=== PATIENT | female | born 1990 | race Caucasian/White ===

== ENCOUNTER 2020-11-06 20:28 | Emergency (ER) | payer BC ==
[2020-11-06 22:02] LABS: APPEARANCE,URINE CLEAR; BILIRUBIN,URINE NEGATIVE (NEGATIVE); COLOR,URINE YELLOW; GLUCOSE, URINE NEGATIVE (NEGATIVE); KETONES,URINE NEGATIVE (NEGATIVE); LEUKOCYTE ESTERASE,URINE NEGATIVE (NEGATIVE); NITRITE,URINE NEGATIVE (NEGATIVE); PROTEIN,URINE NEGATIVE (NEGATIVE); URINE SPECIFIC GRAVITY 1.012; UROBILINOGEN,URINE NEGATIVE mg/dL (<2.0)
--- NOTE | 2020-11-06 22:21 | ER Document Report ---
ED Medical Screen (RME) - General Chief Complaint: Abdominal Pain Stated Complaint: HIGH WHITE BLOOD CELL COUNT Time Seen by Provider: 11/06/20 21:45 Primary Care Provider: JOHNEMPLOYEE [Primary Care Provider] - Follow up as needed Mode of Arrival: Ambulatory Information source: Patient - HPI Patient complains to provider of: Right lower quadrant abdominal pain Notes: 11/06/20 22:20 Patient with complaints of right lower quadrant abdominal pain. The patient states that she was at home when she had a sudden onset of right lower quadrant pain. So bad that she had to stop shopping and sit on the floor. She went to urgent care where she had labs drawn. She was sent home with a prescription for antibiotics. They oni blood at urgent care and called her and told her that her white blood cell count was 14 and that she needed to come to the emergency department. Her pain has improved but is still there. She had nausea during the pain, denies any nausea or vomiting now. No fever. She does complain of some urinary frequency and urgency. Exam: Nontoxic, no distress. Lungs clear throughout. Heart sounds normal. Right lower quadrant tenderness on limited triage abdominal exam. An initial examination was made on the patient as part of the triage process, and it was determined a more comprehensive evaluation was necessary. Initial orders were placed and patient was transferred to another provider in the ED who assumed care and finished evaluation and plan. - Related Data Allergies/Adverse Reactions: No Known Allergies Allergy (Unverified 11/06/20 22:19) Past Medical History - Social History Chew tobacco use (# tins/day): No Frequency of alcohol use: None Drug Abuse: None Physical Exam - Vital signs Vitals: Temp Pulse Resp BP Pulse Ox 98.8 F 90 16 146/83 H 99 11/06/20 20:39 11/06/20 20:39 11/06/20 20:39 11/06/20 20:39 11/06/20 20:39 Course - Vital Signs Vital signs: Temp Pulse Resp BP Pulse Ox 98.8 F 90 16 146/83 H 99 11/06/20 20:39 11/06/20 20:39 11/06/20 20:39 11/06/20 20:39 11/06/20 20:39 Doctor's Discharge - Discharge Referrals: HEALTH,EMPLOYEE [Primary Care Provider] - Follow up as needed
[2020-11-06] MEDS ORDERED: ONDANSETRON HCL INJ/PF 4 MG/2 ML SDV IV ONE (23:17)
[2020-11-06] MEDS ORDERED: MORPHINE SULFATE 10 MG/ML INJ IV ONE (23:17)
--- NOTE | 2020-11-06 23:19 | ER Document Report ---
ED GI/ - General Chief Complaint: Abdominal Pain Stated Complaint: HIGH WHITE BLOOD CELL COUNT Time Seen by Provider: 11/06/20 21:45 Primary Care Provider: HEALTH,EMPLOYEE [ACTIVE STAFF] - Follow up as needed Mode of Arrival: Ambulatory Notes: Patient is a 30-year-old female who comes emergency department for chief complaint of right sided abdominal/pelvic pain. She states that she was feeling fine today, got off work, and then suddenly had severe pain that made her vaguely nauseated and she felt lightheaded. She states the pain was extremely bad at onset and now has improved but is still present to some degree over the area. She states she has had this several times, she states usually she just goes home and sleeps it off and on the next day wakes up essentially pain-free. However she states that she went to urgent care, they oni blood, they called her later and told her that her white blood cell count was 14 and she needed to come to the emergency department. She states that she has had some urinary frequency but denies dysuria, flank pain, vaginal bleeding or discharge. She denies any surgeries. Past medical history of anxiety/depression, denies medical history otherwise. - Related Data Allergies/Adverse Reactions: No Known Allergies Allergy (Unverified 11/06/20 22:19) Past Medical History - General Information source: Patient - Social History Smoking Status: Never Smoker Chew tobacco use (# tins/day): No Frequency of alcohol use: None Drug Abuse: None Lives with: Family Family History: Reviewed & Not Pertinent - Medical History Medical History: Negative Surgical Hx: Negative - Immunizations Immunizations up to date: Yes Hx Diphtheria, Pertussis, Tetanus Vaccination: Yes Review of Systems - Review of Systems Constitutional: No symptoms reported EENT: No symptoms reported Cardiovascular: No symptoms reported Respiratory: No symptoms reported Gastrointestinal: See HPI Genitourinary: See HPI Female Genitourinary: See HPI Musculoskeletal: No symptoms reported Skin: No symptoms reported Hematologic/Lymphatic: No symptoms reported Neurological/Psychological: No symptoms reported Physical Exam - Vital signs Vitals: Temp Pulse Resp BP Pulse Ox 98.8 F 90 16 146/83 H 99 11/06/20 20:39 11/06/20 20:39 11/06/20 20:39 11/06/20 20:39 11/06/20 20:39 - Notes Notes: GENERAL: Alert, interacts well. No acute distress. No signs of distress HEAD: Normocephalic, atraumatic. EYES: Pupils equal, round, and reactive to light. Extraocular movements intact. ENT: Oral mucosa moist, tongue midline. Oropharynx unremarkable. Airway patent. NECK: Full range of motion. Supple. Trachea midline. No lymphadenopathy. LUNGS: Clear to auscultation bilaterally, no wheezes, rales, or rhonchi. No respiratory distress. Non-tender chest wall. HEART: Regular rate and rhythm. No murmur ABDOMEN: Patient is tender in the right inguinal area but she does not have specific McBurney's point tenderness. Remaining abdomen is completely benign. No rigidity, distention, or signs of trauma. Bowel sounds present throughout. EXTREMITIES: Moves all 4 extremities spontaneously. No edema, normal radial and dorsalis pedis pulses bilaterally. No cyanosis. BACK: no cervical, thoracic, lumbar midline tenderness. No saddle anesthesia, normal distal neurovascular exam. Moves all extremities in full range of motion. NEUROLOGICAL: Alert and oriented x3. Normal speech. Cranial nerves II through XII grossly intact. Strength 5/5 in all extremities. PSYCH: Normal affect, normal mood. SKIN: Warm, dry, normal turgor. No rashes or lesions noted. Course - Re-evaluation Re-evalutation: CBC shows mild leukocytosis at 13,000 which is decreased from previous level reported from patient. Urinalysis unremarkable, chemistry unremarkable, negative. Based on her physical exam and reported history I have a higher suspicion that her pain source is ovarian. Ultrasound showing complex possibly hemorrhagic cyst on the right ovary without signs of torsion or concerning findings otherwise. I do suspect this is the cause of her symptoms. Based on her exam and history I have a low suspicion of appendicitis at this time. I discussed details with patient. I discussed follow-up with W[employer] PROCESSING SUPERVISOR, discussed return precautions, patient states appreciation and agreement. Stable and well-appearing at time of discharge. - Vital Signs Vital signs: Temp Pulse Resp BP Pulse Ox 98.8 F 90 16 122/81 99 11/06/20 20:39 11/06/20 20:39 11/06/20 20:39 11/07/20 00:57 11/06/20 20:39 - Laboratory Results Result Diagrams: 11/06/20 23:20 11/06/20 23:20 Laboratory Results Interpreted: 11/06/20 11/06/20 23:20 23:20 WBC 13.0 H Absolute Neuts (auto) 8.7 H Sodium 136.2 L Anion Gap 4 L Critical Laboratory Results Reviewed: No Critical Results - Radiology Results Critical Radiology Results Reviewed: No Critical Results Discharge - Discharge Clinical Impression: Lower abdominal pain, Hemorrhagic cyst of ovary Condition: Stable Disposition: HOME, SELF-CARE Instructions: Oral Narcotic Medication ([facility]) Additional Instructions: Your work-up shows a complex cyst on your right ovary, this appears to be hemorrhagic, the bleeding from the cyst is most likely the cause of your pain. This should simply complete then absorb and resolve. If needed take the stronger pain medication using the precautions, otherwise you can combine Tylenol and ibuprofen for pain. It is important that you have a follow-up appointment with W[employer] PROCESSING SUPERVISOR for a recheck to make sure this complex cyst resolved as we discussed. Return if you worsen including severe worsening pain, vomiting, fever, or any other concerning or worsening symptoms. Prescriptions: Oxycodone HCl/Acetaminophen [Percocet 5-325 mg Tablet] 1 - 2 tab PO TID PRN #8 tab PRN Reason: Forms: Return to Work Referrals: HEALTH,EMPLOYEE [ACTIVE STAFF] - Follow up as needed
[2020-11-06 23:34] LABS: ABSOLUTE BASOPHILS # (AUTO) 0.1 10^3/uL (0.0-0.2); ABSOLUTE EOSINOPHILS # (AUTO) 0.1 10^3/uL (0.0-0.6); ABSOLUTE LYMPHOCYTES (AUTO) 3.3 10^3/uL (0.5-4.7); ABSOLUTE MONOCYTES (AUTO) 0.8 10^3/uL (0.1-1.4); ABSOLUTE NEUT (AUTO) 8.7 10^3/uL (1.7-8.2); BASOPHILS % (AUTO) 0.7 % (0-2); EOSINOPHILS % (AUTO) 0.6 % (0-6); HEMATOCRIT 37.5 % (36.0-47.0); HEMOGLOBIN 12.6 g/dL (12.0-15.5); LYMPHOCYTES % (AUTO) 25.3 % (13-45); MEAN CORPUSCULAR HEMOGLOBIN 27.1 pg (27.0-33.4); MEAN CORPUSCULAR HGB CONC 33.5 g/dL (32.0-36.0); MEAN CORPUSCULAR VOLUME 81 fl (80-97); MONOCYTES % (AUTO) 6.5 % (3-13); PLATELET COUNT 234 10^3/uL (150-450); RED BLOOD COUNT 4.63 10^6/uL (3.72-5.28); RED CELL DISTRIBUTION WIDTH 13.8 % (11.5-14.0); SEGMENTED NEUTROPHILS % (AUTO) 66.9 % (42-78); TOTAL CELLS COUNTED % (AUTO) 100 %
[2020-11-06 23:46] LABS: ALBUMIN 4.3 g/dL (3.5-5.0); ALKALINE PHOSPHATASE 55 U/L (38-126); ASPARTATE AMINO TRANSFERASE 22 U/L (14-36); BILIRUBIN,DIRECT 0.1 mg/dL (0.0-0.4); BILIRUBIN,TOTAL 0.3 mg/dL (0.2-1.3); BLOOD UREA NITROGEN 11 mg/dL (7-20); CALCIUM 9.4 mg/dL (8.4-10.2); CHLORIDE 103 mmol/L (98-107); GLUCOSE 101 mg/dL (75-110); TOTAL PROTEIN 6.9 g/dL (6.3-8.2)
[2020-11-06 23:52] LABS: CARBON DIOXIDE 29 mmol/L (22-30)
[2020-11-06 23:54] LABS: ANION GAP 4 (5-19)
--- OUTSIDE RECORDS SUMMARY | 2020-11-07 00:27 | XMS REPORT ---
:1990 Author Organization [facility] [place] [facility] [place] [address] [place] [id number] Care Team Providers Name Role Phone Unavailable Unavailable Unavailable Allergies, Adverse Reactions, Alerts This patient has no known allergies or adverse reactions. Medications This patient has no known medications. Problems This patient has no known problems. Procedures This patient has no known procedures. Results This patient has no known results. Social History This patient has no known social history. Vital Signs This patient has no known vital signs.
--- NOTE | 2020-11-07 00:42 | RADIOLOGY REPORT (SQ) ---
EXAM DESCRIPTION: US PELVIS TRANSVAGINAL COMPLETED DATE/TME: 11/07/2020 00:20 CLINICAL HISTORY: 30 years, Female, pelvic pain, nausea COMPARISON: None. TECHNIQUE: Emergent pelvic ultrasound LIMITATIONS: None. FINDINGS: The uterus measures 10.0 x 4.2 x 5.7 cm. The myometrium is homogenous. Endometrium measures 9 mm in thickness. IUD within the endometrial canal. The right ovary measures 4.5 x 2.4 x 3.9 cm, the left 3.4 x 1.8 x 1.8 cm. Arterial and venous flow to each ovary. No solid adnexal mass. No free fluid. There is a 1.9 x 1.8 cm mixed echogenicity focus of the right ovary likely reflecting complex cyst. IMPRESSION: Complex 1.9 cm right ovarian cyst. This likely reflects a complex/hemorrhagic dominant follicle Recommend follow-up as per below. IUD in place. Recommendations for f/u of ovarian complex cysts (1): Endometrioma: <= 7 cm: US f/u 6-12 wks. If not surgically resected, US f/u annually. >7 cm: Consider MR w/IVC or surgical evaluation. If not surgically resected, US f/u annually. Dermoid: <= 5 cm: MR w/IV contrast. If not surgically resected, US f/u annually. >5 cm: Surgical evaluation. If not surgically resected, MR w/IVC; then US f/u annually Indeterminate cyst - multiple thin <=3 mm septations: Any size in any age: Consider surgical evaluation. Indeterminate cyst - non-hyperechoic nodule w/o blood flow: Any size in any age: Consider MR w/IVC or surgical evaluation. Indeterminate cyst - other, not classic for but suggestive of hemorrhagic cyst, endometrioma or dermoid: Pre-menopause: <= 7 cm: US f/u 6-12 weeks. If unchanged, continue f/u with US or consider MR w/IVC. If these do not confirm endometrioma or dermoid, consider surgical evaluation. >7 cm: Consider MR w/IVC or surgical evaluation. Post-menopause (>=1 year from last menstrual period): Any size: Consider surgical evaluation. Cyst worrisome for malignancy (thick, irregular >=3 mm septations or nodule with blood flow): Any size in any age: Consider surgical evaluation. (1) Recommendations based upon the 2010 SRU Consensus Conference Statement on the Management of Asymptomatic Ovarian and Other Adnexal Cysts Imaged at US: Radiology. 2009;256(3):941-08 copyright 2011 [employer]- All Rights Reserved
[2020-11-07] MEDS ORDERED: HYDROCODONE/ACETAMINOPHEN 5-325 MG (6 TAB/ER DISP) PO PRN (00:55)
[2020-11-07 01:04] VITALS: BP 122/81
== END 2020-11-07 01:08 | disposition home or self-care (01) ==
LOC: ER 20:28
DX: N83.201 Unspecified ovarian cyst, right side (principal); Z97.5 Presence of (intrauterine) contraceptive device; R10.2 Pelvic and perineal pain; R11.0 Nausea; R42 Dizziness and giddiness; R35.0 Frequency of micturition; D72.829 Elevated white blood cell count, unspecified
CPT/HCPCS: 36415; 76830; 80053; 81001; 81025; 83690; 85025; 93976; 99284